=== PATIENT | male | born 1990 | race Caucasian/White ===

== ENCOUNTER 2020-11-12 02:01 | Emergency (ER) | payer MEDICAID ==
[~2020-11-12] VITALS: Ht 175.3 cm; Wt 72.0 kg
[~2020-11-12 02:01] MED LIST: NO HOME MEDS
[2020-11-12 02:32] VITALS: BP 132/83
== END 2020-11-12 02:51 | disposition left against medical advice (07) ==
LOC: ER 02:02
DX: K04.7 Periapical abscess without sinus (principal); Z53.21 Procedure and treatment not carried out due to patient leaving prior to being seen by health care provider